=== PATIENT | male | born 2000 | race African-American/Black ===

== ENCOUNTER 2022-03-02 09:46 | Emergency (ER) | payer OTHER ==
[~2022-03-02] VITALS: Ht 175.3 cm; Wt 60.0 kg
[2022-03-02] MEDS ORDERED: BACITRACIN 28 GM OINTMENT TP ONE (10:30)
[2022-03-02] MEDS ORDERED: ACET-66 PO (11:40)
[2022-03-02] MEDS ORDERED: IBUP-1554 PO (11:40)
[2022-03-02] MEDS ORDERED: BACI28OI29 TP (11:40)
[2022-03-02 12:10] VITALS: BP 121/84
== END 2022-03-02 12:38 | disposition home or self-care (01) ==
LOC: EMS 09:50
DX: S83.92XA Sprain of unspecified site of left knee, initial encounter (principal); S80.212A Abrasion, left knee, initial encounter; S80.211A Abrasion, right knee, initial encounter; S90.512A Abrasion, left ankle, initial encounter; S90.511A Abrasion, right ankle, initial encounter; V29.9XXA Motorcycle rider (driver) (passenger) injured in unspecified traffic accident, initial encounter; Y93.89 Activity, other specified; Y92.89 Other specified places as the place of occurrence of the external cause; Y99.8 Other external cause status
CPT/HCPCS: 99283